=== PATIENT | female | born 1930 | race Caucasian/White ===

== ENCOUNTER → 2017-06-14 | Outpatient (REF) | payer MEDICARE, OTHER, MEDICAID ==
[2017-02-25 11:48] VITALS: BMI 24.9
[~2017-06-14] MED LIST: ACE3 PO; ACET-1748 PO; ACET500T68 PO; ACET650T40 PO; ALE70 PO; AMLO-96 PO; AMLO2.5T74 PO; ATOR10TA24 PO; ATOR10TA65 PO; AZIT-1 PO; AZIT-17 PO; AZIT500T45 PO; BENZ200C38 PO; BISA10SU62 PR; CALC-652 PO; CALC1CAP19 PO; CALC500T42 PO; CEL100 PO; CEPH-13 PO; CEPH250C37 PO; CHOL200021 PO; CHOL200074 PO; CIPR-344 PO; CIT20 PO; CRAN450T PO; CRAN450T10 PO; DEN60I SUBQ; DIAZ2TAB74 PO; DICL100G39 TOP; DICL100G39 TP; DILT360C25 PO; DOC100 PO; DOCU-416 PO; DOXA2TAB57 PO; ESC10 PO; ESCI10TA8 PO; ESCI20TA38 PO; ESCI5TAB3 PO; FEX60 PO; FISH1CAP15 PO; FLU45SYR17 IM; FLU45SYR25 IM ONLY; FLUO40CA76 PO; FURO-43 PO; FURO-45 PO; GUAI600T57 PO; HCTZ25 PO; HYDR-4309 PO; KET10 PO; LEVO25TA61 PO; LEVO50TA80 PO; LEVO50TA86 PO; LIDO10VI16 INTRA-ART; LIDO700A29 TD; LOPE-111 PO; LOPE2CAP15 PO; LOR5 PO; LOR5/325 PO; LORA-802 PO; LORA-941 PO; LOSA-57 PO; MEC25 PO; MECL-111 PO; MECL25TA9 PO; MEMA28CA PO; MIRT-22 PO; MIRT-25 PO; MOM PO; MULT-1335 PO; MULT-839 PO; MULT-865 PO; NITR-1 PO; NYST15CR32 TP; OMEG-9 PO; ONDA4TAB97 PO; OSC600 PO; OXYB5TAB80 PO; OXYB5TAB86 PO; OXYC1TAB54 PO; OXYXL5 PO; PHEN1TAB PO; PNEU0.5D3 IM; POLY17PO25 PO; POT20; POTA-23 PO; POTA10CA24 PO; POTA10CA40 PO; PRE10 PO; PRED20TA6 PO; RANI-318 PO; RANI-324 PO; RIS35 PO; RISE35TA PO; ROS10 PO; SENN8.6T34 PO; SIMV-42 PO; SODI100G4 DT; SULF-198 PO; TRAM-420 PO; TRI05T TP; TRI40I IART; TRI40I INTRA-ART; TROL85CR TP; WAR1 PO; WAR2 PO; [UNRECOGNIZED DRUG - CODE] DT; [UNRECOGNIZED DRUG - OTHER] PO; [UNRECOGNIZED DRUG - REMARK]
[2017-06-14 04:47] LABS: PLATELET COUNT, AUTOMATED 173 K/uL (150-450)
== END ==
LOC: ZZLCC 04:32
PROVIDERS: ATTEND Nurse Practitioner Family
DX: E03.9 Hypothyroidism, unspecified (principal); R53.83 Other fatigue
CPT/HCPCS: 82040; 82247; 82310; 82374; 82435; 82565; 82947; 84075; 84132; 84155; 84295; 84443; 84450; 84460; 84520; 85025

== ENCOUNTER → 2017-09-04 | Outpatient (REF) | payer MEDICARE, OTHER, MEDICAID ==
[2017-02-25 11:48] VITALS: BMI 24.9
[~2017-09-04] MED LIST changes: -RANI-324 PO; +RANI-366 PO
== END ==
LOC: ZZLCC 07:24
PROVIDERS: ATTEND Nurse Practitioner Family
DX: E03.9 Hypothyroidism, unspecified (principal)
CPT/HCPCS: 84443

== ENCOUNTER → 2017-10-29 | Outpatient (REF) | payer MEDICARE, OTHER, MEDICAID ==
[2017-02-25 11:48] VITALS: BMI 24.9
== END ==
LOC: ZZLCC 07:12
PROVIDERS: ATTEND Nurse Practitioner Family
DX: Z79.899 Other long term (current) drug therapy (principal)
CPT/HCPCS: 82040; 82247; 82310; 82374; 82435; 82565; 82947; 84075; 84132; 84155; 84295; 84450; 84460; 84520